=== PATIENT | male | born 1950 | race Caucasian/White ===

== ENCOUNTER 2017-06-29 10:58 | Outpatient (CLI) | payer MEDICARE, OTHER, BC ==
--- NOTE | 2017-06-29 12:56 | ULT ---
SOFT TISSUE ULTRASOUND OF THE BODY WALL: CLINICAL HISTORY: Low back pain. FINDINGS: Localized sonographic imaging of the regional soft tissues at site of patient's left flank reveals no localizable mass. No obvious edema. IMPRESSION: No discernible pathology evident by sonographic evaluation to account for pain. Given pain at the le ft lower back, as reported, consider dedicated followup imaging such as lumbar spine MRI for further evaluation, as clinically warranted. POS: [facility]
== END 2017-06-29 10:59 | disposition home or self-care (01) ==
LOC: ULT 10:58
PROVIDERS: ATTEND Specialist
DX: D17.79 Benign lipomatous neoplasm of other sites (principal); M54.5 Low back pain
CPT/HCPCS: 76999

== ENCOUNTER 2021-06-15 10:19 | Outpatient (CLI) | payer MEDICARE, OTHER | END 2021-06-15 10:20 | disposition home or self-care (01) | LOC: TBSIIMAG 10:19 | PROVIDERS: ATTEND Neurological Surgery | DX: M51.36 Other intervertebral disc degeneration, lumbar region (principal); M47.816 Spondylosis without myelopathy or radiculopathy, lumbar region; M41.9 Scoliosis, unspecified | CPT/HCPCS: 72148 ==